=== PATIENT | female | born 1960 | race Caucasian/White ===

== ENCOUNTER 2018-09-23 15:47 | Emergency (ER) | payer BC, MEDICAID ==
[2018-09-23] MEDS ORDERED: SODIUM CHLORIDE 0.9% 500 ML IV ONE (16:01)
--- NOTE | 2018-09-23 16:04 | Emergency Department Record ---
History of Present Illness - General Chief complaint: Flank Pain Stated complaint: KIDNEY PAIN Time Seen by Provider: 09/23/18 15:58 Source: Patient Mode of Arrival: Ambulatory Limitations: No limitations - History of Present Illness Initial comments: The patient is here due to R sided sharp stabbing flank pain for about 8 hours. The pain is intermittent and does radiate to the front of the abdomen. She denies any hematuria, dysuria, fever, nausea or vomiting. The patient is very concerned she has a kidney stone due to the fact she only has one kidney on the R side. She donated her L kidney to her brother and also has had her gallbladder removed. The patient also states she has been urinating normally all day today since the pain started. MD Complaint: Other Onset/Timin -: Hour(s) Radiation: R flank Severity: Mild Severity scale (1-10): 4 Quality: Aching, Sharp Consistency: Constant, Intermittent Improves with: None Worsens with: None Patient : No Associated Symptoms: Denies other symptoms - Related Data Previous Rx's Medication Instructions Recorded Acetaminop W/ Codeine 300/30Mg 1 tab PO Q6H #12 tab 09/23/18 [Tylenol #3] Metronidazole [Flagyl] 500 mg PO TID #21 tablet 09/23/18 Allergies Allergy/AdvReac Type Severity Reaction Status Date / Time povidone-iodine Allergy PT UNSURE Verified 09/23/18 16:23 [From Betadine] OF REACTION soap [From Betadine] Allergy PT UNSURE Verified 09/23/18 16:23 OF REACTION sulfamethoxazole AdvReac Severe VOMITING Verified 09/23/18 15:56 [From Bactrim] trimethoprim [From Bactrim] AdvReac Severe VOMITING Verified 09/23/18 15:56 Travel Screening - Travel/Exposure Within Last 30 Days Have you traveled within the last 30 days?: No Review of Systems Constitutional: Denies: Chills, Fever Eyes: Denies: Eye discharge ENT: Denies: Congestion Respiratory: Denies: Cough, Dyspnea Cardiovascular: Denies: Arrhythmia Endocrine: Denies: Fatigue Gastrointestinal: Reports: Abdominal pain. Denies: Nausea, Vomiting Genitourinary: Denies: Dysuria Musculoskeletal: Reports: Back pain. Denies: Arthralgia Neurological: Denies: Abnormal gait, Confusion Past Medical History - SOCIAL HISTORY Smoking Status: Never smoker Alcohol Use: None Drug Use: None - RESPIRATORY Hx Respiratory Disorders: No - CARDIOVASCULAR Hx Cardio Disorders: No - NEURO Hx Neuro Disorders: No - GI Hx GI Disorders: No - Hx Genitourinary Disorders: No - ENDOCRINE Hx Endocrine Disorders: No - MUSCULOSKELETAL Hx Musculoskeletal Disorders: No - PSYCH Hx Psych Problems: No - HEMATOLOGY/ONCOLOGY Hx Hematology/Oncology Disorders: No Family Medical History Any Significant Family History?: No Physical Exam - General General Appearance: Alert, Oriented x3, Cooperative, No acute distress - Head Head exam: Atraumatic, Normocephalic, Normal inspection - Eye Eye exam: Normal appearance, PERRL, EOMI - ENT Throat exam: Normal inspection. negative: Tonsillar erythema, Tonsillar exudate - Neck Neck exam: Normal inspection, Full ROM. negative: Tenderness - Respiratory Respiratory exam: Normal lung sounds bilaterally. negative: Respiratory distress - Cardiovascular Cardiovascular Exam: Regular rate, Normal rhythm, Normal heart sounds - GI/Abdominal GI/Abdominal exam: Soft, Tenderness (There is mild RUQ and R flank tenderness to palpation.). negative: Distended, Guarding, Rebound, Rigid - Extremities Extremities exam: Normal inspection, Full ROM, Normal capillary refill. negative: Tenderness - Back Back exam: Reports: Normal inspection - Neurological Neurological exam: Alert, Normal gait. negative: Abnormal gait, Motor sensory deficit - Psychiatric Psychiatric exam: negative: Anxious Course Vital Signs 09/23/18 15:52 Temperature 98.1 F Pulse Rate 94 H Respiratory 20 Rate Blood Pressure 159/94 Pulse Ox 96 - Reevaluation(s) Reevaluation #1: I did discuss the CT results with the patient and the need for F/U early next week. She is to take her home Cipro with Flagyl for the Diverticulitis and we will provide Tylenol # 3 for pain. 09/23/18 17:07 Reevaluation #2: The patient is doing very well at this time. She denies any new pain or any new discomfort. Her pain is now better and she has had no nausea or vomiting. I did again discuss the need for F/U and the need to return to the ER for any worsening symptoms. 09/23/18 17:32 Medical Decision Making - Data Complexity MDM Data: Labs Ordered and/or Reviewed, X-Ray Ordered and/or Reviewed - Lab Data Result diagrams: 09/23/18 16:08 09/23/18 16:08 - Radiology Data Radiology results: Report reviewed (Abd CT: Mild hepatic flexure Diverticulitis. ) Disposition Disposition: Discharge Clinical Impression: Diverticulitis large intestine Qualifiers: Diverticulitis bleeding: without bleeding Diverticulitis complication: unspecified complication status Qualified Code(s): K57.32 - Diverticulitis of large intestine without perforation or abscess without bleeding Disposition: Home, Self-Care Condition: (2) Stable Instructions: Diverticulitis (ED) Additional Instructions: Please take the Tylenol # 3 for pain and take your home Cipro and Flagyl starting tomorrow. Please see your family doctor early next week for recheck. Return to the ER for any worsening pain, fever, vomiting, or bleeding. Prescriptions: Acetaminop W/ Codeine 300/30Mg [Tylenol #3] 1 tab PO Q6H #12 tab Metronidazole [Flagyl] 500 mg PO TID #21 tablet Forms: Patient Portal Access Time of Disposition: 17:14 Quality - Quality Measures Quality Measures: N/A - Blood Pressure Screening View Details: Yes Does Patient Have Any of the Following: No Blood Pressure Classification: Hypertensive Reading Systolic Measurement: 159 Diastolic Measurement: 94 Screening for High Blood Pressure: < First Hypertensive BP, F/U Documented > [ [id number]] First Hypertensive Follow-up Interventions: Referral to alternative/primary care provider.
[2018-09-23 16:14] LABS: BASO % 0.1 % (0-6); EOS % 1.8 % (0-6); GRAN % 64.8 % (47-80); HEMOGLOBIN 11.5 gm/dl (11.6-16.0); LYMPH % 25.7 % (16-45); MEAN CELL VOLUME 86.8 fl (81-97); MEAN CORPUSCULAR HEMOGLOBIN 28.5 pg (27-33); MEAN CORPUSCULAR HGB CONC 32.9 g/dl (32-36); MEAN PLATELET VOLUME 10.2 fl (7.4-10.4); MONO % 7.6 % (0-9); PLATELET COUNT 182 K/uL (130-400); RED BLOOD COUNT 4.03 M/uL (3.80-5.40); RED CELL DISTRIBUTION WIDTH 13.3 % (11.5-14.5); WHITE BLOOD COUNT W/O DIFF 6.8 K/uL (4.2-12.2)
[2018-09-23 16:27] LABS: BLOOD UREA NITROGEN 25 mg/dL (6-20); CREATININE 0.8 mg/dL (0.5-0.9); EST GLOMERULAR FILTRATION RATE > 60 mL/min
[2018-09-23 16:30] LABS: GLUCOSE,RANDOM 104 mg/dL (74-109)
[2018-09-23 16:33] LABS: URINE APPEARANCE CLEAR; URINE BILIRUBIN NEGATIVE (NEGATIVE); URINE BLOOD NEGATIVE (NEGATIVE); URINE COLOR YELLOW; URINE GLUCOSE (UA) NEGATIVE (NEGATIVE); URINE KETONE NEGATIVE (NEGATIVE); URINE LEUKOCYTE ESTERASE NEGATIVE (NEGATIVE); URINE NITRITE NEGATIVE (NEGATIVE); URINE PROTEIN NEGATIVE (NEGATIVE); URINE UROBILINOGEN 0.2 E.U./dL (0.20 - 1.00)
[2018-09-23] MEDS ORDERED: 0.9 % SODIUM CHLORIDE 1,000 ML BAG IV ONE (16:38)
[2018-09-23] MEDS ORDERED: ONDANSETRON HCL IV 4 MG/2 ML VIAL IVP ONE (16:43)
[2018-09-23] MEDS ORDERED: MORPHINE SULFATE 10 MG/ML VIAL IVP ONE (16:43)
[2018-09-23] MEDS ORDERED: ACETAMINOPHEN W/ CODEINE 300MG/30MG TABLET PO ONE (16:49)
[2018-09-23] MEDS ORDERED: ERTAPENEM SODIUM 1 G in 0.9 % SODIUM CHLORIDE 100ML 100 ML IVPB ONE (16:49)
[2018-09-23 16:58] LABS: TOTAL PROTEIN 7.4 g/dL (6.6-8.7)
[2018-09-23 17:02] LABS: ALBUMIN 3.8 g/dL (4.0-5.0); ALKALINE PHOSPHATASE 81 U/L (35-104); ALT/SGPT 21 U/L (<33); AST/SGOT 20 U/L (10.0-35.0)
[2018-09-23 17:03] LABS: BILIRUBIN,DIRECT < 0.2 mg/dL (0-0.3); LIPASE 41 U/L (13-60)
--- NOTE | 2018-09-25 10:39 | CT SCAN REPORT ---
DATE: 09/23/2018. EXAM: CT SCAN OF THE ABDOMEN AND PELVIS. HISTORY: PAIN IN THE RIGHT LOWER QUADRANT. TECHNIQUE: Serial axial CT scan of the abdomen and pelvis was performed at 2.5 mm intervals from the dome of the diaphragm down to the pubic symphysis without the use of intravenous contrast. COMPARISON: No comparison CTs are available. FINDINGS: The lung windows and lung bases demonstrate no CT evidence of a focal infiltrate or pleural effusion. The visualized heart size and contour is within normal limits. The liver, spleen, pancreas, and adrenal glands are unremarkable. Cholecystectomy clips are noted within the right upper quadrant of the abdomen. The right kidney demonstrates no CT evidence of hydronephrosis or hydroureter. No renal or ureteral calculi are noted. There is a nonspecific 6.5 mm focus of increased density within the inferior pole of the right kidney which may represent a small proteinaceous cyst. If there is further clinical concern, an MRI of the kidneys can be obtained for further evaluation. The left kidney is surgically absent. The contour and caliber of the noncontrasted abdominal aorta is within normal limits. There is no CT evidence of retroperitoneal, pelvic, or inguinal lymphadenopathy. The bowel gas pattern is nonobstructive. Within the hepatic flexure of the colon, there is mild to moderate pericolonic fat stranding. Several diverticula are noted in this region. These findings suggest mild, acute diverticulitis. No pericolonic fluid collection is noted to suggest an abscess. No microperforation is noted. There is no CT evidence of free intraperitoneal fluid or free intraperitoneal air. The abdominal wall is unremarkable. The urinary bladder is unremarkable. The uterus is absent. The bone windows demonstrate no CT evidence of a fracture or dislocation of the visualized osseous structures. IMPRESSION: 1. FINDINGS COMPATIBLE WITH MILD, ACUTE DIVERTICULITIS OF THE HEPATIC FLEXURE OF THE COLON. NO PERICOLONIC ABSCESS OR MICROPERFORATION IS NOTED. 2. POSTOPERATIVE CHANGES OF THE LEFT KIDNEY. JOB NUMBER: [id number] [facility]
== END 2018-09-23 17:35 | disposition home or self-care (01) ==
LOC: ER 15:47
DX: K57.32 Diverticulitis of large intestine without perforation or abscess without bleeding (principal)
CPT/HCPCS: 99284 ×2; 96365; 83690; 85025; 80076; 80048; 81003; 74176; J1335